=== PATIENT | female | born 1935 | race Caucasian/White ===

== ENCOUNTER 2016-06-18 11:07 | Inpatient (IN) | payer OTHER, MEDICARE ==
[~2016-06-18] VITALS: Ht 160 cm; Wt 70.0 kg
[2016-06-18] VITALS (11 sets, daily range): BP systolic 118–158; BP diastolic 48–98; PULSE 66–80; RESP 17–26; Ht 160 cm; Wt 70.0 kg
[~2016-06-18 11:07] MED LIST: AMLO5TAB4 PO; ATROPINE 1 MG/10 ML SYRINGE ONE; CARV12.598 PO; CLON0.5T4 PO; DOPamine-D5W 1.6 MG/ML 250 ML ONE; FENO145T25 PO; INSU100I13 SC; MELO-174 PO; NIT4 SL; OMEP20CA9 PO; TRAM50TA2 PO; ZOC20 PO
--- NOTE | 2016-06-18 11:23 | ERA ---
ER Documentation Chief Complaint Date/Time DATE: 06/18/16 TIME: 11:23 Chief Complaint Dizziness HPI The patient is a 81-year-old female, presenting to the ER because of acute dizziness from the [facility]. When the EMS arrived, she was hypotensive , systolic blood pressure was around 80 and bradycardic heart rate was around 30s. She however was awake, alert, able to follow commands. She denies headache, blurred vision, neck pain, chest pain. She complains of dyspnea, denies abdominal pain, vomiting, dysuria. Her doctor recently started her on spironolactone for her CHF. She does not smoke, drink Past medical history: History of CHF, diabetes mellitus, hypertension, CAD, dyslipidemia Past surgical history: None ROS All systems reviewed and are negative except as per history of present illness. Medications Home Meds Active Scripts Tramadol HCl (Tramadol HCl) 50 Mg Tab, 50 MG PO Q6H Y for HEADACHE, #30 TAB Prov:EMANUEL WADE MD 04/08/14 Reported Medications Olmesartan/Hydrochlorothiazide (Benicar Hct 40-25 mg Tablet) 1 Each Tablet, 1 EACH PO DAILY, TAB 06/18/16 Cholecalciferol (Vitamin D3) (Vitamin D3) 50,000 Unit Capsule, 67722 UNIT PO WEEKLY, CAP 06/18/16 Glimepiride* (Glimepiride*) 4 Mg Tablet, 4 MG PO DAILY, TAB 06/18/16 Metformin* (Glucophage*) 500 Mg Tab, 500 MG PO BID, #30 TAB 06/18/16 Clonidine Patch (CLONIDINE PATCH) 0.3 Mg/24 Hr Patch, 1 PATCH.WK TD Q7D, #4 PATCH.WK 06/18/16 Spironolactone* (Aldactone*) 25 Mg Tablet, 25 MG PO DAILY, #30 TAB 06/18/16 Docusate Sodium* (Docusate Sodium*) 100 Mg Capsule, 100 MG PO BID, #60 CAP 06/18/16 Clonidine Hcl* (Clonidine Hcl*) 0.1 Mg Tab, 0.1 MG PO Q6 Y for ELEVATED BLOOD PRESSURE, TAB 06/18/16 Aspirin* (Aspirin* EC) 81 Mg Tablet.dr, 81 MG PO DAILY, TAB 06/18/16 Insulin Lispro (Humalog) 100 Unit/1 Ml Cartridge, 0-18 UNIT SQ QID 06/18/16 Nitroglycerin* (Nitroglycerin* SL) 0.4 Mg Tab.subl, 0.4 MG SL Q5MIN Y for CHEST PAIN, BOTTLE 06/18/16 Insulin Glargine* (Lantus*) 100 Unit/Ml Soln, 20 UNIT SC DAILY, #1 VIAL 06/18/16 Furosemide* (Furosemide*) 40 Mg Tablet, 40 MG PO DAILY, TAB 06/18/16 Solifenacin* (Vesicare*) 10 Mg Tablet, 10 MG PO DAILY, TAB 06/18/16 Alendronate Sodium* (Fosamax*) 70 Mg Tablet, 70 MG PO Q7D, #4 TAB 06/18/16 Pantoprazole* (Pantoprazole*) 40 Mg Tablet.dr, 40 MG PO AC BREAKFAST, TAB 06/18/16 Carvedilol* (Carvedilol*) 25 Mg Tablet, 25 MG PO BID, #60 TAB 06/18/16 Citalopram Hydrobromide* (Citalopram Hydrobromide*) 20 Mg Tablet, 20 MG PO DAILY , #30 TAB 06/18/16 Simvastatin (Simvastatin) 20 Mg Tablet, 20 MG PO DAILY, TAB 04/03/14 Discontinued Reported Medications Olmesartan/Hydrochlorothiazide (Benicar Hct 40-25 mg Tablet) 1 Each Tablet, 1 EACH PO, TAB 06/18/16 Clonazepam* (Clonazepam*) 0.5 Mg Tablet, 0.5 MG PO Q6 Y for ANXIETY, TAB 04/03/14 Omeprazole* (Prilosec*) 20 Mg Capsule.dr, 20 MG PO DAILY, CAP 04/03/14 Fenofibrate Nanocrystallized* (Tricor*) 145 Mg Tablet, 145 MG PO DAILY, TAB 04/03/14 Meloxicam* (Mobic*) 7.5 Mg Tab, 7.5 MG PO DAILY, TAB 04/03/14 Discontinued Scripts Nitroglycerin* (Nitrostat*) 25 Tab Subl, 1 TAB SL Q5M Y for CHEST PAIN, #30 TAB Prov:EMANUEL WADE MD 04/08/14 Insuln Asp Prt/Insulin Aspart* (Novolog Mix 70-30 Flexpen*) 100 Unit/1 Ml Inj, 35 UNIT SC BID, #1 BOTTLE Prov:EMANUEL WADE MD 04/08/14 Carvedilol* (Coreg*) 12.5 Mg Tab, 12.5 MG PO BID, #60 TAB Prov:EMANUEL AWDE MD 04/08/14 Amlodipine Besylate* (Norvasc*) 5 Mg Tab, 2.5 MG PO DAILY, #30 TAB Prov:EMANUEL WADE MD 04/08/14 Allergies Allergies: Coded Allergies: No Known Allergy (Unverified , 06/18/16) PMhx/Soc History of Surgery: Yes (ORTHOPEDIC, CATARACT) Anesthesia Reaction: No Hx Neurological Disorder: No Hx Respiratory Disorders: No Hx Cardiac Disorders: Yes (HTN) Hx Psychiatric Problems: Yes (DEPRESSION) Hx Miscellaneous Medical Probl: Yes (OBESITY) Hx Alcohol Use: No Hx Substance Use: No Hx Tobacco Use: No Physical Exam Vitals Vital Signs Date Time Temp Pulse Resp B/P Pulse Ox O2 Delivery O2 Flow Rate FiO2 06/18/16 13:15 88 18 123/31 100 Nasal Cannula 4.0 06/18/16 12:43 75 20 96 Nasal Cannula 4.0 06/18/16 12:15 Nasal Cannula 2 06/18/16 11:58 95.4 40 18 87/50 95 Physical Exam Const: No acute distress. Head: Atraumatic. Eyes: Normal Conjunctiva. ENT: Normal External Ears, Nose and Mouth. Neck: Full range of motion. No meningismus. Resp: Clear to auscultation bilaterally. Cardio: Irregularly, bradycardic Abd: Soft, non distended, normal bowel sounds, non tender. Skin: No petechiae or rashes. Back: No midline or flank tenderness. Ext: No cyanosis, or edema. Neur: Awake and alert. No focal deficit Psych: Anxious Result Diagram: 06/18/16 1110 06/18/16 1110 Results 24 hrs Laboratory Tests Test 06/18/16 11:10 06/18/16 11:22 06/18/16 12:25 Activated Partial Thromboplast Time 27.2Sec Alanine Aminotransferase (ALT/SGPT) 27IU/L Albumin 3.6g/dl Albumin/Globulin Ratio 0.97 Alkaline Phosphatase 123IU/L Anion Gap 24 Aspartate Amino Transf (AST/SGOT) 30IU/L Basophils # 0.110^3/ul Basophils % 0.5% Blood Urea Nitrogen 60mg/dl Calcium Level 10.8mg/dl Carbon Dioxide Level 19mmol/L Chloride Level 98mmol/L Creatinine 1.75mg/dl Direct Bilirubin 0.00mg/dl Eosinophils # 0.310^3/ul Eosinophils % 2.2% Globulin 3.70g/dl Glucose Level 625mg/dl Hematocrit 33.8% Hemoglobin 11.0g/dl INR International Normalized Ratio 1.13 Indirect Bilirubin 0.4mg/dl Lactic Acid Level 6.4mmol/L Lymphocytes # 4.710^3/ul Lymphocytes % 34.0% Magnesium Level 1.8mg/dl Mean Corpuscular Hemoglobin 30.0pg Mean Corpuscular Hemoglobin Concent 32.5g/dl Mean Corpuscular Volume 92.1fl Mean Platelet Volume 11.3fl Monocytes # 0.610^3/ul Monocytes % 4.4% Neutrophils # 8.110^3/ul Neutrophils % 58.0% Nucleated Red Blood Cells # 0.010^3/ul Nucleated Red Blood Cells % 0.0/100WBC Platelet Count 39346^3/UL Potassium Level 7.6mmol/L Prothrombin Time 14.5Sec Prothrombin Time Ratio 1.1 Red Blood Count 3.6710^6/ul Red Cell Distribution Width 13.2% Sodium Level 133mmol/L Thyroid Stimulating Hormone (TSH) 7.550MIU/L Total Bilirubin 0.4mg/dl Total Protein 7.3g/dl Troponin I < 0.012ng/ml White Blood Count 14.010^3/ul Bedside Glucose > 595mg/dL Arterial Blood HCO3 21.2mmol/L Arterial Blood Base Excess -5.3mmol/L Arterial Blood Oxygen Saturation 92.3mmHG Jairon Test ACCEPTAB Arterial Blood Gas Puncture Site Left Radial Arterial Blood Carboxyhemoglobin 0% Arterial Blood Date Drawn 06/18/2016 12:22:52 PM Arterial Blood Methemoglobin 0.2% Arterial Blood pCO2 (Temp correct) 44.8mmhg Arterial Blood pH (Temp corrected) 7.292 Arterial Blood pO2 (Temp corrected) 73.4mmHG Blood Gas A-a O2 Differential 66.1mmHg Blood Gas Critical Value Read Back Grabiel MCDONALD RN Blood Gas Modality NASAL CANNULA Blood Gas Notified Time 06/18/2016 12:31:30 PM Blood Gas Notified Whom TM Blood Gas Specimen Source Blood arterial Blood Gas Temperature 37.0C FiO2 27.0% Oxyhemoglobin Percent 92.1% Total Hemoglobin 12.2g/dl Current Medications Medications (Trade) Dose Ordered Sig/Jacques Route PRN Reason Start Time Stop Time Status Last Admin Dose Admin Ondansetron HCl 4 mg 4 mg STK-MED ONCE .ROUTE 06/18/16 11:52 06/18/16 11:53 DC Norepinephrine 250 ml @ ud STK-MED ONCE .ROUTE 06/18/16 11:53 06/18/16 11:54 DC Dopamine HCl/ Dextrose 250 ml @ 5.25 mls/hr TITRATE IV 06/18/16 12:30 Norepinephrine (Levophed) 250 ml @ 1.875 mls/ hr TITRATE IV 06/18/16 12:30 Insulin Human Regular (Humulin R) 10 unit ONCE ONCE IV 06/18/16 13:00 06/18/16 13:01 DC 06/18/16 12:48 Albuterol 15 mg 15 mg ONCE STAT INH 06/18/16 12:33 06/18/16 12:35 DC 06/18/16 12:42 Piperacillin Sod/ Tazobactam Sod 50 ml @ 100 mls/hr ONCE ONCE IVPB 06/18/16 13:00 06/18/16 13:29 Vancomycin HCl (Vancocin) 250 ml @ 125 mls/hr ONCE IVPB 06/18/16 13:00 06/18/16 14:59 06/18/16 12:50 Sodium Bicarbonate (Na Bicarb 8.4% Syg) 50 ml ONCE STAT IV 06/18/16 12:35 06/18/16 12:38 DC 06/18/16 12:49 Lidocaine (Xylocaine 1% (Mdv) 20 ml) 20 ml ONCE ONCE SC 06/18/16 13:00 06/18/16 13:01 DC Procedures/MDM EKG: Read by emergency physician Rate/Rhythm: Slow atrial fibrillation 26 beats/min QRS, ST, T-waves: No ST elevation, no T inversion Impression: Abnormal EKG [place] [id number] Radiology Main Line: [phone] DIAGNOSTIC IMAGING REPORT Patient: GAURI FRAGA : 1935 Age: 81 Sex: F [id number] DOS: 06/18/16 1123 Ordering MD: FIDELIA DAILEY MD Location: E/R Room/Bed: PROCEDURE: Chest Radiograph. CLINICAL INDICATION: Sepsis. Chest pain. TECHNIQUE: Single frontal chest radiograph. COMPARISON: Chest radiograph 04/03/2014 FINDINGS: Study is limited by overlying pacer pad. The patient is mildly rotated. Heart size is within normal limits. Atherosclerotic calcifications are present. There is thickening of the right paratracheal stripe, stable compared to 2013 and likely related to tortuous vasculature. There is diffuse interstitial prominence likely related to chronic lung changes. There is mild basilar atelectasis or scarring. No confluent or lobar infiltrate is definitively seen. There is no pleural effusion identified. The bones are demineralized but grossly intact IMPRESSION: 1. Basilar atelectasis and/or scarring. 2. Diffuse interstitial prominence is nonspecific but likely relates to chronic lung changes. Pulmonary edema or atypical infections could also have this appearance. 3. Atherosclerotic vascular disease. RPTAT: KK .Moy Prince MD MD Date Time Electronically viewed and signed by .Moy Prince MD, MD on 2016 12:30 .B/ CC: FIDELIA DAILEY MD MEDICAL MAKING DECISION: The patient is a 81-year-old female, presenting with acute bradycardia in 20s, and acute dizziness most likely due to acute bradycardia, acute hyperkalemia, acute septic shock, acute new onset hypothyroidism, acute diabetic hyperglycemia, acute on chronic kidney disease, anemia. She was treated empirically with 1 L normal saline, ampule calcium gluconate iv, atropine 0.5 mg 6 approximately 3 minutes apart with minimal response. She was paced at 60 bpm and started on dopamine drip. Her vital signs improved. At this time the potassium came back 7.6, she was therefore treated with 10 units of regular insulin IV and albuterol neb 15 mg over 15 minutes and 1 amp of sodium bicarb. She was treated for probable acute septic shock with vancomycin IV, Zosyn IV. ABG on 27%, pH 7.29, PCO2 44, PO2 73 Consultation: When patient did not responded to atropine iv and calcium gluconate iv, I paged the on-call leadership development instructor Dr Singh at 11: 30 pm for emergent venous pacemaker and spoke with her at 12pm, who asked me to contact other cardiologists. I have paged Dr Juárez and Dr Valencia at 12:02 pm. I spoke with Dr. Juárez at 1 PM; however, at this time the patient vital signs has been stable and hyperkalemia has been corrected. He accepted the consult Admit MDM: Patient's infectious symptoms have not stabilized and the patient is at risk of rapid decompensation. The patient will be admitted for careful hydration, antibiotic therapy, and infectious source control. Severe Sepsis criteria: Infectious source: Unknown End organ damage indicated by: Lactate > 2.0 mmol/L Hypotension (SBP < 90 or >40 mmHG drop or MAP < 65) Acute Resp Failure (sat < 92% w/o oxygen) Sepsis Management: Time of recognition of severe sepsis/septic shock:11:15 pm Within 3 hours of recognition: Blood cultures x 2 before broad-spectrum antibiotics: Yes 30 ml/kg NS bolus not completed because of possible CHF and history of kidney disease, she did receive 1 L normal saline Initial lactate 6.4 Repeat lactate pending Critical Care: Critical care time 75 minutes Emergent fluid management while maintaining close respiratory support. Provision of immediate and broad-spectrum antibiotic therapy. Simultaneous assessment for possible sources in order to direct targeted therapy. Consideration for invasive and chemical support to prevent cardiopulmonary collapse. Septic Shock Assessment: Any lactic acid > 4.0 yes Persistent hypotension (SBP < 90 or 40 mmHg drop, MAP < 65) despite 30 mL/kg IV fluid bolusyes Volume Re-assessment for Septic Shock (post 30 ml/kg bolus): Temp95.4, BP123/31, HR88 RR18, Pox100 % on 27% Heart regular rate & rhythm Lungs no crackles Skin Warm & dry & pale Cap Refill less than 2 seconds Peripheral pulses radially present Persistent Hypotension Treatment: Comfort care no Central line PICC Vasopressor started Dopamine due to bradycardia and hypotensive I considered further perfusion assessment with CVP measurement, SCVO2, bedside ultrasound volume assessment, passive leg raise, trial of further fluid bolus. And proceeded withdopamine drip Accepting Care Team Current data and ongoing care discussed. Time: 1:05 PM Admitting Physician: Christiano Flooring Machine Operator(s): Franck Solis Diagnosis: Primary Impression: Bradycardia Additional Impressions: Hyperkalemia Septic shock Hypothyroidism Hyperglycemia due to type 2 diabetes mellitus Acute kidney injury superimposed on chronic kidney disease Anemia Condition: Critical Comments I discussed the findings with the patient. I discussed the patient with the on- call hospitalist Dr. Alvarado who was made aware of the lab, the treatment, the patient condition. The patient is admitted to ICU at 1:05 pm FIDELIA DAILEY MD Jun 18, 2016 11:23
[2016-06-18] MEDS ORDERED: CITA20TA6 PO (11:31)
[2016-06-18] MEDS ORDERED: CARV25TA79 PO (11:32)
[2016-06-18] MEDS ORDERED: SOLI10TA5 PO (11:33)
[2016-06-18] MEDS ORDERED: PANT40TA4 PO (11:33)
[2016-06-18] MEDS ORDERED: ALEN70TA30 PO (11:33)
[2016-06-18] MEDS ORDERED: FURO40TA4 PO (11:34)
[2016-06-18] MEDS ORDERED: LANT3I SC (11:35)
[2016-06-18] MEDS ORDERED: INSU100C SQ (11:36)
[2016-06-18] MEDS ORDERED: NITR0.4T6 SL (11:36)
[2016-06-18] MEDS ORDERED: ASPI-664 PO (11:36)
[2016-06-18] MEDS ORDERED: DOCU-159 PO (11:37)
[2016-06-18] MEDS ORDERED: CLON-379 PO (11:37)
[2016-06-18] MEDS ORDERED: SPIR25TA PO (11:38)
[2016-06-18] MEDS ORDERED: CLON1PAT3 TD (11:38)
[2016-06-18] MEDS ORDERED: GLIM4TAB PO (11:39)
[2016-06-18] MEDS ORDERED: METF500T4 PO (11:39)
[2016-06-18] MEDS ORDERED: CHOL500051 PO (11:41)
[2016-06-18] MEDS ORDERED: OLME1TAB5 PO ×2 (11:42)
[2016-06-18 11:51] LABS: ADD SCAN DIFF NO
[2016-06-18] MEDS ORDERED: ONDANSETRON 4 MG INJ ONE (11:52)
[2016-06-18] MEDS ORDERED: NORepinephrine 8MG/250 ML (PMX 250 ML ONE (11:53)
[2016-06-18 12:06] LABS: BASOPHIL # 0.1 10^3/ul (0.0-0.1); BASOPHILS % 0.5 % (0.0-2.0); EOSINOPHILS # 0.3 10^3/ul (0.0-0.5); EOSINOPHILS % 2.2 % (0.0-7.0); HEMATOCRIT 33.8 % (37.0-47.0); LYMPHOCYTES # 4.7 10^3/ul (0.8-2.9); MEAN CORPUSCULAR HGB CONC 32.5 g/dl (32.0-37.0); MEAN CORPUSCULAR VOLUME 92.1 fl (82.0-101.0); MEAN PLATELET VOLUME 11.3 fl (7.4-10.4); MONOCYTE # 0.6 10^3/ul (0.3-0.9); MONOCYTES % 4.4 % (0.0-11.0); NEUTROPHIL # 8.1 10^3/ul (1.6-7.5); PLATELET COUNT 382 10^3/UL (140-415); RED BLOOD COUNT 3.67 10^6/ul (4.20-5.40); RED CELL DISTRIBUTION WIDTH 13.2 % (11.5-14.5)
[2016-06-18 12:23] LABS: PT RATIO 1.1
[2016-06-18 12:24] LABS: ALANINE AMINOTRANSFERASE 27 IU/L (13-69); ALBUMIN 3.6 g/dl (3.3-4.9); ALBUMIN/GLOBULIN RATIO 0.97; ALKALINE PHOSPHATASE 123 IU/L (42-121); ANION GAP 24 (8-16); ASPARTATE AMINO TRANSFERASE 30 IU/L (15-46); BILIRUBIN,INDIRECT 0.4 mg/dl (0-1.1); BILIRUBIN,TOTAL 0.4 mg/dl (0.2-1.3); BLOOD UREA NITROGEN 60 mg/dl (7-20); CALCIUM 10.8 mg/dl (8.4-10.2); CARBON DIOXIDE 19 mmol/L (21-31); CHLORIDE 98 mmol/L (97-110); CREATININE 1.75 mg/dl (0.44-1.00); MAGNESIUM 1.8 mg/dl (1.7-2.5); SODIUM 133 mmol/L (135-144); TOTAL PROTEIN 7.3 g/dl (6.1-8.1)
[2016-06-18 12:25] LABS: GLUCOSE 625 mg/dl (70-220); POTASSIUM 7.6 mmol/L (3.5-5.1); TROPONIN-I < 0.012 ng/ml (0.00-0.12)
[2016-06-18] MEDS ORDERED: DOPamine-D5W 1.6 MG/ML 250 ML IV SCH (12:30)
[2016-06-18] MEDS ORDERED: NORepinephrine 8MG/250 ML (PMX 250 ML IV SCH ×2 (12:30→14:00)
--- NOTE | 2016-06-18 12:31 | RADRPT ---
PROCEDURE: Chest Radiograph. CLINICAL INDICATION: Sepsis. Chest pain. TECHNIQUE: Single frontal chest radiograph. COMPARISON: Chest radiograph 04/03/2014 FINDINGS: Study is limited by overlying pacer pad. The patient is mildly rotated. Heart size is within carrillo l limits. Atherosclerotic calcifications are present. There is thickening of the right paratrachea l stripe, stable compared to 2014 and likely related to tortuous vasculature. There is diffuse inter stitial prominence likely related to chronic lung changes. There is mild basilar atelectasis or sca rring. No confluent or lobar infiltrate is definitively seen. There is no pleural effusion ident ified. The bones are demineralized but grossly intact IMPRESSION: 1. Basilar atelectasis and/or scarring. 2. Diffuse interstitial prominence is nonspecific but likely relates to chronic lung changes. Pulm onary edema or atypical infections could also have this appearance. 3. Atherosclerotic vascular disease. RPTAT: KK .Moy Prince MD, MD Date Time Electronically viewed and signed by .Moy Prince MD, on 06/18/2016 12:30 .B/
[2016-06-18] MEDS ORDERED: ALBUTEROL 0.5% (NEB) 2.5 MG/0.5 ML AMP INH STA (12:33)
[2016-06-18 12:34] LABS: AADO2 Arterial 66.1 mmHg (7.0-24.0); Allen Test ACCEPTAB; Arterial Base Excess -5.3 mmol/L (-3.0-3); Arterial COHb 0 % (0.0-3.0); Arterial Fraction of Oxyhgb 92.1 % (93.0-99.0); Arterial HCO3 21.2 mmol/L (22.0-26.0); Arterial MetHb 0.2 % (0.0-1.5); Arterial Total Hemglobin 12.2 g/dl (12.0-18.0); MODE NASAL CANNULA
[2016-06-18] MEDS ORDERED: NA BICARBONATE 8.4% 50 ML SYG IV STA (12:35)
[2016-06-18 12:47] LABS: INR 1.13; PARTIAL THROMBOPLASTIN TIME 27.2 Sec (25.0-35.0); PROTIME 14.5 Sec (12.2-14.2)
[2016-06-18] MEDS ORDERED: VANCOMYCIN 1 GM (PMX) 250 ML IVPB SCH (13:00)
[2016-06-18] MEDS ORDERED: INSULIN REGULAR, HUMAN 100 UNIT/1 ML 3ML VIAL IV ONE (13:00)
[2016-06-18] MEDS ORDERED: PIPER-TAZO 2.25 GM (PMX) 50 ML IVPB ONE (13:00)
[2016-06-18] MEDS ORDERED: LIDOCAINE 1% (MDV) 20 ML INJ SC ONE (13:00)
[2016-06-18] MEDS ORDERED: SOD CHLORIDE 0.9% 1,000 ML IV SCH (13:56)
[2016-06-18] MEDS ORDERED: NACL 0.9% 3 ML SYG IV SCH (14:00)
[2016-06-18] MEDS ORDERED: hydrALAzine 20 MG INJ IV PRN (14:00)
[2016-06-18] MEDS ORDERED: NA PHOSPHATE/BIPHOS 133 ML ENEMA PR PRN (14:00)
[2016-06-18] MEDS ORDERED: HYDROCODONE/APAP (5/325) TAB PO PRN (14:00)
[2016-06-18] MEDS ORDERED: VANCOMYCIN IV PER PHARMACY XX SCH (14:00)
[2016-06-18] MEDS ORDERED: MAGNESIUM HYDROXIDE 30ML CUP PO PRN (14:00)
[2016-06-18] MEDS ORDERED: morphine 2 MG INJ IV PRN (14:00)
[2016-06-18] MEDS ORDERED: LORAZEPAM 2 MG INJ IV PRN (14:00)
[2016-06-18] MEDS ORDERED: ACETAMINOPHEN 325 MG TAB PO PRN (14:00)
[2016-06-18] MEDS ORDERED: NITROGLYCERIN (SL) 0.4 MG TAB SL PRN (14:00)
[2016-06-18] MEDS ORDERED: DOCUSATE SODIUM 100 MG CAP PO PRN (14:00)
[2016-06-18] MEDS ORDERED: ONDANSETRON 4 MG INJ IV PRN (14:00)
[2016-06-18] MEDS ORDERED: ALBUTEROL/IPRATROPIUM (NEB) 3 ML AMP HHN PRN (14:00)
--- NOTE | 2016-06-18 14:29 | CONS ---
Date/Time of Note Date/Time of Note DATE: 06/18/16 TIME: 14:22 Assessment/Plan Assessment/Plan Additional Assessment/Plan Severe hyperkalemia Bradycardia Hypotension SIRS Diabetes, uncontrolled History of congestive heart failure Lactic acidosis -Patient status post treatment of hyperkalemia, would repeat level, treat elevated glucose since this will also help with hyperkalemia. Continue IV fluids as respiratory status tolerates. Check echocardiogram. Hold any nephrotoxic or antihypertensive medications at the current time. Would titrate down dopamine as blood pressure and heart rate permits. Rule out infectious etiology Consultation Date/Type/Reason Admit Date/Time Type of Consultation: cv Reason for Consultation Bradycardia Hx of Present Illness This is an 81-year-old female with past medical history of congestive heart failure, hypertension, diabetes who was in her normal state of health and went to her daycare facility today. While she was there, patient with symptoms of dizziness and lightheadedness, fatigue and near syncope. EMS was called, patient was hypotensive, bradycardic with elevated sugar. Patient was brought to the emergency room and found to be with junctional bradycardia. Patient was treated prophylactically for hyperkalemia. She was put on dopamine as well. Blood pressure and heart rate has improved. She denies any chest pain, shortness of breath, fevers, chills, abdominal pain. She was recently at [facility] in [place]. She was there with "fluid in her lungs". While there, she was started on spironolactone. 12 point review of systems was performed with all pertinent positives and negatives mentioned above and all else is negative Past Medical History Medical History: congestive heart failure, high cholesterol, hypertension, renal disease Family History Significant Family History: no pertinent family hx Social History Alcohol Use: none Smoking Status: Never smoker Other Social History Lives at home Exam/Review of Systems Vital Signs Vitals Vital Signs Date Time Temp Pulse Resp B/P Pulse Ox O2 Delivery O2 Flow Rate FiO2 06/18/16 13:15 88 18 123/31 100 Nasal Cannula 4.0 06/18/16 11:58 95.4 Exam On facemask, no apparent distress Constitutional: alert, obese, oriented Head: normocephalic Neck: supple Respiratory: other (Coarse breath sounds bilaterally, no wheezing) Cardiovascular: other (S1-S2 heard), regular rate and rhythm Gastrointestinal: bowel sounds, non-tender, other (No guarding), soft Extremities: edema (Trace) Results Result Diagram: 06/18/16 1110 06/18/16 1110 Results 24 hrs Laboratory Tests Test 06/18/16 11:10 06/18/16 11:22 06/18/16 12:25 Activated Partial Thromboplast Time 27.2 Alanine Aminotransferase (ALT/SGPT) 27 Albumin 3.6 Albumin/Globulin Ratio 0.97 Alkaline Phosphatase 123 H Anion Gap 24 H Aspartate Amino Transf (AST/SGOT) 30 Basophils # 0.1 Basophils % 0.5 Blood Urea Nitrogen 60 H Calcium Level 10.8 H Carbon Dioxide Level 19 L Chloride Level 98 Creatinine 1.75 H Direct Bilirubin 0.00 Eosinophils # 0.3 Eosinophils % 2.2 Globulin 3.70 H Glucose Level 625 *H Hematocrit 33.8 L Hemoglobin 11.0 L INR International Normalized Ratio 1.13 Indirect Bilirubin 0.4 Lactic Acid Level 6.4 *H Lymphocytes # 4.7 H Lymphocytes % 34.0 Magnesium Level 1.8 Mean Corpuscular Hemoglobin 30.0 Mean Corpuscular Hemoglobin Concent 32.5 Mean Corpuscular Volume 92.1 Mean Platelet Volume 11.3 #H Monocytes # 0.6 Monocytes % 4.4 Neutrophils # 8.1 H Neutrophils % 58.0 Nucleated Red Blood Cells # 0.0 Nucleated Red Blood Cells % 0.0 Platelet Count 382 Potassium Level 7.6 *H Prothrombin Time 14.5 H Prothrombin Time Ratio 1.1 Red Blood Count 3.67 L Red Cell Distribution Width 13.2 Sodium Level 133 L Thyroid Stimulating Hormone (TSH) 7.550 H Total Bilirubin 0.4 Total Protein 7.3 Troponin I < 0.012 White Blood Count 14.0 #H Bedside Glucose > 595 *H Arterial Blood HCO3 21.2 L Arterial Blood Base Excess -5.3 L Arterial Blood Oxygen Saturation 92.3 L Jairon Test ACCEPTAB Arterial Blood Gas Puncture Site Left Radial Arterial Blood Carboxyhemoglobin 0 Arterial Blood Date Drawn 06/18/2016 12:22:52 PM Arterial Blood Methemoglobin 0.2 Arterial Blood pCO2 (Temp correct) 44.8 Arterial Blood pH (Temp corrected) 7.292 *L Arterial Blood pO2 (Temp corrected) 73.4 L Blood Gas A-a O2 Differential 66.1 H Blood Gas Critical Value Read Back Grabiel MCDONALD RN Blood Gas Modality NASAL CANNULA Blood Gas Notified Time 06/18/2016 12:31:30 PM Blood Gas Notified Whom TM Blood Gas Specimen Source Blood arterial Blood Gas Temperature 37.0 FiO2 27.0 Oxyhemoglobin Percent 92.1 L Total Hemoglobin 12.2 Medications Medications Current Medications Dopamine HCl/ Dextrose 250 ml @ 5.25 mls/hr TITRATE IV ; Start 06/18/16 at 12: 30 Norepinephrine 250 ml @ 1.875 mls/ hr TITRATE IV ; Start 06/18/16 at 12:30 Vancomycin HCl (Vancocin) 250 ml @ 125 mls/hr ONCE IVPB Last administered on t 12:50; Admin Dose 125 MLS/HR; Start 06/18/16 at 13:00; Stop 06/18/16 at 14:59 Ondansetron HCl (Zofran Inj) 4 mg Q6H PRN IV NAUSEA AND/OR VOMITING; Start at 14:00 Acetaminophen (Tylenol Tab) 650 mg Q6H PRN PO PAIN LEVEL 1-3 OR FEVER; Start at 14:00 Acetaminophen/ Hydrocodone Bitart ([place] (5/325)) 1 tab Q6H PRN PO MODERATE PAIN LEVEL 4-6; Start 06/18/16 at 14:00 Morphine Sulfate (morphine) 2 mg Q4H PRN IV SEVERE PAIN LEVEL 7-10; Start 06/18 at 14:00 Docusate Sodium (Colace) 100 mg Q12H PRN PO CONSTIPATION; Start 06/18/16 at 14: 00 Magnesium Hydroxide (Milk Of Mag) 30 ml DAILY PRN PO CONSTIPATION; Start at 14:00 Sodium Biphosphate/ Sodium Phosphate (Fleet Enema) 133 ml DAILY PRN [place] CONSTIPATION; Start 06/18/16 at 14:00 Famotidine (Pepcid Iv) 20 mg Q12 IV ; Start 06/18/16 at 21:00; Status UNV Lorazepam 0.5 mg 0.5 mg Q6H PRN IV ANXIETY; Start 06/18/16 at 14:00 Sodium Chloride 1,000 ml @ 100 mls/hr Q10H IV ; Start 06/18/16 at 13:56 Levofloxacin/ Dextrose (Levaquin 750 Mg/ D5W 150 ml (Pmx)) 150 ml @ 100 mls/hr DAILY IVPB ; Start 06/19/16 at 09:00; Status UNV Hydralazine HCl (Apresoline) 10 mg Q6H PRN IV ELEVATED BLOOD PRESSURE; Start at 14:00 Nitroglycerin 1 tab 1 tab Q5M PRN SL ANGINA; Start 06/18/16 at 14:00 Sodium Chloride (NS) 1,000 ml @ 1,000 mls/hr Q1H IV ; Start 06/18/16 at 13:56; Stop 06/18/16 at 15:55 Miscellaneous Information (* Miscellaneous Pharmacy Order) HYPOGLYCEMIA PROTOCOL w... ONCE ONCE XX ; Start 06/18/16 at 14:00; Stop 06/18/16 at 14:01; Status UNV Miscellaneous Information (* Miscellaneous Pharmacy Order) Discontinue Glyburide , Glipizide,... ONCE ONCE XX ; Start 06/18/16 at 14:00; Stop 06/18/16 at 14:01 ; Status UNV Miscellaneous Information (* Miscellaneous Pharmacy Order) Discontinue all previ... ONCE ONCE XX ; Start 06/18/16 at 14:00; Stop 06/18/16 at 14:01; Status UNV Insulin Glargine (Lantus) 20 unit DAILY SC ; Start 06/19/16 at 09:00; Status UNV Miscellaneous Information 20 mg DAILY PO ; Start 06/19/16 at 09:00; Status UNV Miscellaneous Information 1 ea NOTE XX ; Start 06/18/16 at 14:30 Glucose (Glutose) 15 gm Q15M PRN PO DECREASED GLUCOSE; Start 06/18/16 at 14:30 Glucose (Glutose) 22.5 gm Q15M PRN PO DECREASED GLUCOSE; Start 06/18/16 at 14: 30 Dextrose (D50w Syringe) 25 ml Q15M PRN IV DECREASED GLUCOSE; Start 06/18/16 at 14:30 Dextrose (D50w Syringe) 50 ml Q15M PRN IV DECREASED GLUCOSE; Start 06/18/16 at 14:30 Glucagon (Glucagen) 1 mg Q15M PRN IM DECREASED GLUCOSE; Start 06/18/16 at 14:30 Glucose (Glutose) 15 gm Q15M PRN BUCCAL DECREASED GLUCOSE; Start 06/18/16 at 14 :30 Procedures Procedures ECG done in the emergency room demonstrates junctional bradycardia On telemetry, currently sinus rhythm with heart rates in the 90s Richard Juárez DO Jun 18, 2016 14:29
[2016-06-18] MEDS ORDERED: GLUCAGON 1 MG INJ IM PRN ×2 (14:30)
[2016-06-18] MEDS ORDERED: GLUCOSE GEL 15 GRAM TUBE PO PRN ×4 (14:30)
[2016-06-18] MEDS ORDERED: GLUCOSE GEL 15 GRAM TUBE BUCCAL PRN ×2 (14:30)
[2016-06-18] MEDS ORDERED: DEXTROSE 50% 50 ML SYRINGE IV PRN ×4 (14:30)
[2016-06-18] MEDS ORDERED: LEVOFLOXACIN 750MG/D5W (PMX) 150 ML IVPB SCH (16:00)
[2016-06-18] MEDS: SOD CHLORIDE 0.9% 1,000 ML IV SCH ×2 (17:00→23:56)
[2016-06-18] MEDS ORDERED: VANCOMYCIN 750 MG in SOD CHLORIDE 0.9% 150 ML IVPB SCH (17:00)
[2016-06-18] MEDS ORDERED: INSULIN ASPART [NOVOLOG] 3 ML PEN SC SCH (17:35)
--- NOTE | 2016-06-18 17:35 | CONS ---
DATE OF ADMISSION: 06/18/2016 DATE OF CONSULTATION: 06/18/2016 TYPE OF CONSULTATION: Nephrology. REASON FOR CONSULTATION: Acute kidney injury, hyperkalemia. PHYSICIAN REQUESTING CONSULT: Dr. Juárez. HISTORY OF PRESENT ILLNESS: This is an 81-year-old female with a past medical history of CHF, diabe petrona, hypertension, coronary artery disease, dyslipidemia who [facility] with dizziness from [facility]. The patient was noted to be confused and al tered at her outside facility. Upon arrival to the emergency room, patient was noted to be hypotens simeon with systolic pressures in the 80s, bradycardic in the 50s. The patient had no headache, no jack rred vision, no neck pain, no chest pain, denied any dysuria, hematuria, hematochezia. Upon arrival , the patient had laboratory data drawn, which showed a sodium 132, potassium 7.6, BUN 60, creatinin e 1.75, and glucose 625. Lactic acid of 6.4, calcium 10.8, a white count of 14,000. In the emergen cy room, the patient had a chest x-ray which showed interstitial prominence, pulmonary edema or poss ible atypical infection. The patient in the emergency room was given calcium gluconate, was given I V insulin and was given albuterol, sodium bicarbonate and IV fluids, IV antibiotics, and transferred to the intensive care unit. While in intensive care unit, the patient was also initiated on dopami ne due to bradycardia and episode of hypertension. Upon my evaluation of patient at this time, she is alert and oriented x1. The patient is a poor his tree, but unable to give any prior history in terms of her renal disease. There has been no repor ts, as stated above, of any hemoptysis, hematemesis or hematochezia. PAST MEDICAL HISTORY: History of congestive heart failure, diabetes, hypertension, coronary artery disease, dyslipidemia. PAST SURGICAL HISTORY: Unknown. ALLERGIES: NO KNOWN DRUG ALLERGIES. FAMILY HISTORY: No family history of kidney disease or heart disease. SOCIAL HISTORY: No history of alcohol or drug use. MEDICATIONS: The patient's medications have been reviewed. REVIEW OF SYSTEMS: Unable to do adequate review of systems as patient is altered. Pertinent positi ves obtained by reviewing medical records, speaking to hospital staff, stated in HPI, otherwise nega tive. PHYSICAL EXAMINATION: VITAL SIGNS: Blood pressure is 129/73, respiratory rate 20, pulse 71, temperature 98.4. HEENT: Head is normocephalic. NECK: Supple. HEART: Regular rate. LUNGS: Show diminished breath sounds at the base. ABDOMEN: Soft, nontender to palpation. No rebound or guarding. EXTREMITIES: Negative for clubbing, cyanosis. Trace edema. DERMATOLOGIC: No rashes. MUSCULOSKELETAL: No joint effusions. NEUROLOGIC: No focal deficits. LABORATORY DATA: Showed a sodium 133, potassium 7.6, BUN 60, creatinine 1.65, glucose 625. Lactic acid 6.4. White count 14.0, hemoglobin 11.0, hematocrit 30.8, platelet count 382. Repeat potassium level was 5.8. Chest x-ray as stated in HPI. ASSESSMENT AND PLAN: This is an 81-year-old female who presents with: 1. Severe hyperkalemia. Etiology is multifactorial secondary to hyperglycemia, Aldactone effect, h emodynamics, acute kidney injury. Patient is status post calcium gluconate, IV insulin, sodium bica rbonate and albuterol. The patient repeat potassium level is 5.8. The patient's bradycardia subseq uently resolved. The patient's urinary output has been over 400 mL in the last 8 hours. At this po int, given the patient's improved potassium levels and adequate urine output, and resolution of matt ycardia, there is no immediate need for renal replacement therapy. Would continue current medical m anagement. Continue IV hydration as tolerated. Will hold Aldactone. Will monitor serial potassium levels. If potassium levels do not further decline and/or should increase, would consider starting the patient on dialysis. Additionally, would continue with improved glucose control. Once the pat ient is near euglycemic status, the patient's potassium levels will also improve 2. Nonoliguric acute kidney injury on top of chronic kidney disease with unknown baseline creatinin e. The patient's last creatinine from 2013 was around 1.5 mg/dL, near her previous baseline. Under lying etiology is possibly hemodynamics and medication related due to diuretics and Aldactone effect . Plan at this point would be to check a renal ultrasound to rule out obstruction, although suspici on is low. Will check UA with microanalysis, check urine electrolytes and quantify any proteinuria. Agree with holding diuretic therapy. Agree with giving gentle IV hydration. Will monitor renal f unction closely. 3. Hyponatremia, etiology secondary to acute kidney injury in conjunction with hyperglycemia. The plan is to intensify insulin therapy to obtain euglycemia. Potassium levels will subsequently impro ve, will monitor closely. 4. Mixed acid base disorder. The patient has a metabolic and respiratory acidosis. The patient aldana s a pH of 7.29 with a pCO2 of 44. The patient's underlying pCO2 levels are inappropriately elevated . Etiology of acidosis is due to acute kidney injury and lactic acid. Patient is status post bicar bonate therapy. We will continue to monitor bicarbonate levels. No need for bicarbonate drip at th is time. 5. Mineral bone disorder. Monitor calcium, phosphorus levels. No need for phosphate binders. 6. Bradycardia due to hyperkalemia, improved. The patient is status post dopamine. Continue to mo nitor. 7. Systemic inflammatory response syndrome, possible sepsis. The patient is currently on IV antibi otics. We will follow up cultures. 8. History of congestive heart failure. The patient is near euvolemic status, monitor closely on I V fluids. 9. Uncontrolled diabetes. Would consider insulin drip if glucose levels remain greater than 300. 10. Encephalopathy, etiology toxic metabolic. Continue to monitor. 11. Hypertension, possibly related to hemodynamics, blood pressures and/or infection. The patient 's blood pressure is improved. Will continue to monitor. Thank you, Dr. Juárez, for this interesting consultation. It will be a pleasure to follow patient w sylwia newell throughout the hospital course. Dictated By: CHA VALDOVINOS DO NR/NTS Conf#: [id number] DID#: [id number] CC: FIDELIA JUÁREZ DO;*EndCC*
--- NOTE | 2016-06-18 17:40 | RADRPT ---
PROCEDURE: Renal US. CLINICAL INDICATION: Acute kidney injury. TECHNIQUE: Multiple sonographic images of the kidneys and urinary bladder were obtained. The imag es were reviewed on a PACS workstation. COMPARISON: 04/05/2014. FINDINGS: The right kidney measures 10.5 x 4.9 x 5.9 cm. The left kidney measures 10.4 x 4.3 x 4.5 cm. There is no renal mass. There is no hydronephrosis. There is no renal calculus. Renal parenchymal thickness and echogenicity is normal bilaterally. The perirenal regions are normal with no fluid collection or mass. There is a Amaya catheter in the urinary bladder. IMPRESSION: 1. Amaya catheter in the bladder. 2. No hydronephrosis. 3. Otherwise normal renal ultrasound. RPTAT: QQ .Khadar Bell MD, MD Date Time Electronically viewed and signed by .Khadar Bell MD, on 06/18/2016 17:40 .R/
[2016-06-18 19:04] LABS: POTASSIUM 5.2 mmol/L (3.5-5.1)
[2016-06-18 19:06] LABS: CREATININE 1.42 mg/dl (0.44-1.00)
[2016-06-18 19:07] LABS: CALCIUM 10.4 mg/dl (8.4-10.2)
--- NOTE | 2016-06-18 19:25 | RADRPT ---
PROCEDURE: XR Chest. CLINICAL INDICATION: Shortness of breath. PICC line placement TECHNIQUE: A single portable view of the chest was obtained. COMPARISON: 06/18/2016 from 12:13 p.m. FINDINGS: A left PICC line is seen with the tip in the SVC. The aorta is tortuous and atherosclerotic. The c ardiomediastinal silhouette is otherwise enlarged and is stable. Diffuse pulmonary vascular congest ion is seen with likely underlying pulmonary edema and is increase. The soft tissues and osseous str uctures demonstrate benign age related senescent changes. IMPRESSION: 1. Interval placement of a left PICC line with the tip in the SVC. 2. Radiographic findings consistent with congestive heart failure again with increased pulmonary va scular congestion and underlying pulmonary edema. RPTAT: HPNM Physician Larisa Date Time Electronically viewed and signed by Jose Daniel Rushing Physician on 06/18/2016 19:25 /
--- NOTE | 2016-06-18 19:30 | RADRPT ---
PROCEDURE: XR Chest. CLINICAL INDICATION: PICC line insertion. TECHNIQUE: Single AP portable chest COMPARISON: 06/18/2016 chest x-ray FINDINGS: Cardiac silhouette is enlarged. Marked vascular congestion and vascular prominence. Small right pl eural effusion. Superimposed infectious process cannot be excluded particularly involving the right infrahilar region. Left PICC line catheter tip overlying the cavoatrial junction. No pneumothorax . . The osseous structures and soft tissues are unremarkable. IMPRESSION: 1. Left PICC line catheter tip overlying the cavoatrial junction.. 2. Cardiomegaly and marked vascular congestion. Superimposed infectious process cannot be excluded particularly involving the right infrahilar region. RPTAT:AAJJ Grabiel Turner Physician Date Time Electronically viewed and signed by Grabiel Turner Physician on 06/18/2016 19:30 AYDE/
[2016-06-18] MEDS: FAMOTIDINE 20 MG INJ IV SCH (20:25)
[2016-06-18] MEDS: ATORVASTATIN 10 MG TAB PO SCH (20:25)
[2016-06-18 20:43] LABS: CK-MB 1.51 ng/ml (0.0-2.4)
[2016-06-18] MEDS: INSULIN ASPART [NOVOLOG] 3 ML PEN SC SCH (20:44)
[2016-06-18 20:46] LABS: TROPONIN-I 0.028 ng/ml (0.00-0.12)
[2016-06-19] VITALS (24 sets, daily range): BP systolic 87–157; BP diastolic 44–79; PULSE 64–80; RESP 11–25
[2016-06-19] MEDS: INSULIN ASPART [NOVOLOG] 3 ML PEN SC SCH ×6 (00:40→20:59)
[2016-06-19 05:22] LABS: ADD SCAN DIFF NO
[2016-06-19 05:28] LABS: BASOPHILS % 0.4 % (0.0-2.0); EOSINOPHILS # 0.1 10^3/ul (0.0-0.5); EOSINOPHILS % 0.5 % (0.0-7.0); HEMATOCRIT 27.5 % (37.0-47.0); HEMOGLOBIN 9.2 g/dl (12.0-16.0); LYMPHOCYTES # 2.1 10^3/ul (0.8-2.9); LYMPHOCYTES % 18.4 % (15.0-51.0); MEAN CORPUSCULAR HEMOGLOBIN 29.5 pg (29.0-33.0); MEAN CORPUSCULAR HGB CONC 33.5 g/dl (32.0-37.0); MEAN CORPUSCULAR VOLUME 88.1 fl (82.0-101.0); MEAN PLATELET VOLUME 11.1 fl (7.4-10.4); MONOCYTE # 0.9 10^3/ul (0.3-0.9); MONOCYTES % 8.1 % (0.0-11.0); NEUTROPHIL # 8.1 10^3/ul (1.6-7.5); NEUTROPHILS % 72.2 % (39.0-77.0); PLATELET COUNT 259 10^3/UL (140-415); RED BLOOD COUNT 3.12 10^6/ul (4.20-5.40); RED CELL DISTRIBUTION WIDTH 13.4 % (11.5-14.5); WHITE BLOOD COUNT 11.3 10^3/ul (4.8-10.8)
[2016-06-19 05:51] LABS: CREATININE 1.23 mg/dl (0.44-1.00)
[2016-06-19 05:52] LABS: CALCIUM 9.8 mg/dl (8.4-10.2); MAGNESIUM 1.2 mg/dl (1.7-2.5); PHOSPHORUS 4.6 mg/dl (2.5-4.9)
[2016-06-19 06:20] LABS: THYROID STIMULATING HORMONE 1.37 MIU/L (0.465-4.680)
--- NOTE | 2016-06-19 07:21 | HP ---
DATE OF ADMISSION: 06/18/2016 CHIEF COMPLAINT: Dizziness and high potassium. HISTORY OF PRESENT ILLNESS: An 81-year-old female with past medical history of type 2 diabetes, ess ential hypertension, coronary artery disease, high cholesterol, depression and CHF, who was brought in by ambulance today. Most of the information was obtained from the ER documentation as the patien t is presently on a breathing treatment and getting echocardiogram and not able to provide a full HP I at this time. Apparently, per documentation, the patient was at her adult daycare, tried to stand up earlier today, she became dizzy and diaphoretic. When EMS was called to the scene, her blood pr essure was found to be in the 80s and her heart rate was in the 30s. Her glucose was actually over 500. So, the patient was brought to the ER. External pacemaker was started and the patient was als o found with high potassium levels of 7.6. She was given calcium gluconate, 10 units of IV insulin, sodium bicarbonate 1 amp, as well as albuterol nebulizer. For her bradycardia, she also received a tropine x6. Eventually, the external pacemaker was able to be removed and her heart rate stabilized to the low 60s. She was also put on a dopamine drip briefly as well because of the hypotension aft er getting the 1 liter of normal saline IV fluid bolus. Cardiology team was also contacted who agre ed to see the patient as well. Apparently, per records, the patient also had recently been started on Aldactone as an outpatient for CHF. Again, her potassium was 7.6 and the above medicines were gi leni as mentioned above. REVIEW OF SYSTEMS: A full review of systems could not be obtained because the patient was presently on nebulizer mask and getting echocardiogram. PAST MEDICAL HISTORY: As stated above. ALLERGIES: NO KNOWN DRUG ALLERGIES. HOME MEDICATIONS: 1. Coreg 25 mg b.i.d. 2. Clonidine 0.1 mg p.o. q.6h. p.r.n. 3. Clonidine patch transdermal q. weekly. 4. Nitroglycerin 0.4 mg sublingual every 5 minutes p.r.n. 5. Benicar 40/25 daily. 6. Simvastatin 20 mg daily. 7. Spironolactone 25 mg daily. 8. Aspirin 81 mg daily. 9. Citalopram 20 mg daily. 10. Tramadol 50 mg q.6h. p.r.n. 11. Lasix 80 mg daily. 12. Colace 100 mg b.i.d. 13. Protonix 40 mg daily. 14. Glimepiride ____ mg daily. 15. Lantus 20 units subcutaneous daily. 16. Humalog ____ units q.i.d. 17. Metformin 500 mg b.i.d. 18. VESIcare 10 mg daily. 19. Vitamin D3 50,000 units weekly. 20. Fosamax 70 mg q. weekly. PAST SURGICAL HISTORY: She has had cataract surgery in the past and some kind of orthopedic surgery in the past, unable to further clarify. FAMILY HISTORY: Unknown. SOCIAL HISTORY: Negative for smoking, drinking, or IV drug abuse. PHYSICAL EXAMINATION: VITAL SIGNS: Today, temperature max 95.4, pulse 30 to 88, respirations 18 to 20, blood pressure 80/ 50 to 123/31, saturating at 100% on 4 liters nasal cannula. GENERAL: The patient is alert, answering questions, but presently getting nebulizer mask. No acute distress. HEENT: Pupils equal, round, react to light. Extraocular muscles intact. NECK: Supple, no thyromegaly. LUNGS: Clear to auscultation bilaterally. CARDIOVASCULAR: S1, S2 heard. No rubs or gallops. ABDOMEN: Soft, nontender, nondistended. Normal bowel sounds. No rebound or guarding. MUSCULOSKELETAL: Trace pitting edema bilateral lower extremities to the mid calves. NEUROLOGIC: No focal deficits. LABORATORY DATA: WBC 14.0, hemoglobin 11.0, hematocrit 33.8, platelets of 382. Sodium 133, potass ium 7.6, chloride 98, CO2 of 19, BUN of 60, creatinine 1.75, glucose of 625. Lactic acid 6.4. Calcium is 10.8. Again, glucose was 595. UA is still pending. ABG showed a pH of 7.29, pCO2 of 44, PaO2 of 73, bicarbonate of 21.2. IMAGING: She had a chest x-ray which showed bibasilar atelectasis with diffuse interstitial promine nce nonspecific, but likely related to chronic lung changes, cannot rule out pulmonary edema or atyp ical infections. ASSESSMENT AND PLAN: An 81-year-old female coming in with dizziness and sweating with findings of h yperglycemia, sugars over 500. Also, hypotension, bradycardia, hyperkalemia. 1. Hypotension. Again, unclear source. The patient is on multiple blood pressure medicines at [facility]. Her white count is elevated. She does have a history of congestive heart failure. Cannot rule out a septic versus cardiogenic shock cause. She also has an elevated lactic acid. We will admit h er and put her on aggressive IV fluid hydration as well, pressor support as needed. We will get a c ardiology consult as well. Consider infectious disease consult. We will followup on her culture re sults. Check TSH, A1c, and lipid panel as well. 2. Hyperkalemia. Again, she did receive calcium gluconate, IV insulin, sodium bicarbonate and albu terol. Check BMP today to monitor potassium levels as well. Monitor cardiac system very carefully as well. Continue IV fluids as well. Monitor urine output. 3. Bradycardia. Again, unclear source. She was recently started on Aldactone at home. She is on Coreg as well. Because she has a history of CHF, we will get a cardiology consult. Hold her cardia c medicines for now. Her blood pressure has stabilized after getting multiple doses of atropine and also started on pressor support as well in the ER. She is alert. 4. Hyperglycemia. Again, she has per records, a history of type 2 diabetes. Her anion gap is slig htly elevated. We do not have a UA, but her bicarbonate is only minimally low. Low suspicion for _ ___ versus DKA. It could just be uncontrolled diabetes. Again, aggressive IV fluids and IV insulin as well. 5. History of congestive heart failure. We will get echocardiogram and get a cardiology consult as well. We are holding her blood pressure medicines given the above symptoms and hypotension and bra dycardia. 6. History of type 2 diabetes. Again, check A1c, put her on sliding scale insulin. 7. History of coronary artery disease. Again, consider restarting her home aspirin. 8. High cholesterol. Check a lipid panel as well. 9. Gastrointestinal prophylaxis. We will put her on an H2 eugenio. 10. Deep venous thrombosis prophylaxis. Put her on sequential compression devices. We will get PT , OT consults as well. Dictated By: OG WOOD Conf#: [id number] [facility]#: [id number]
[2016-06-19] MEDS ORDERED: MAGNESIUM SULFATE 4 GM/100 ML 100 ML IVPB ONE (07:30)
[2016-06-19] MEDS ORDERED: MAGNESIUM SULFATE 2 GM/50 ML 50 ML IVPB ONE (07:30)
--- NOTE | 2016-06-19 08:33 | PN ---
DATE: 06/19/2016 SUBJECTIVE: The patient is stable, no acute events overnight. No fevers, chills, nausea, vomiting. No shortness of breath. OBJECTIVE: VITAL SIGNS: Blood pressure is currently 157/60, respiration 18, pulse 98.7. INTAKE AND OUTPUT: The patient had 2 L in, 1.6 liters out. HEENT: Head is normocephalic. NECK: Supple. HEART: Regular rate. LUNGS: Show diminished breath sounds at base. ABDOMEN: Soft, nontender to palpation. No rebound or guarding. EXTREMITIES: Negative for clubbing, cyanosis. Trace edema. DERMATOLOGIC: No rashes. MUSCULOSKELETAL: No joint effusion. NEUROLOGIC: No focal deficits. LABORATORY DATA: Show sodium 140, potassium 5.0, chloride 104, BUN , creatinine 1.23, magnesiu m 1.2. White count 11.3, hemoglobin 9.2, hematocrit 27.5, platelet count 259,000. IMAGING STUDIES: Patient's renal ultrasound shows Amaya catheter in bladder, no hydronephrosis, oth erwise normal renal ultrasound. ASSESSMENT AND PLAN: 1. Severe hyperkalemia. Etiology is primarily secondary to severe hypercalcemia in conjunction wit h Aldactone hemodynamics. The patient's potassium levels have normalized after improved glyce ann control and receiving IV fluids. At this point, would recommend to deescalate IV in the history of congestive heart failure. If patient is able to tolerate p.o. we will discontinue IV fluids. W ould otherwise have the patient on a low potassium diet. Would avoid ROB inhibitor and Aldactone at this time. Otherwise, continue to monitor closely. 2. Nonoliguric acute kidney injury on top of chronic kidney disease, with a baseline creatinine of 1.5 mg/dL. Etiology of acute kidney injury was secondary to hemodynamics. Renal function has impro nathan with IV hydration. At this point we will discontinue IV fluids if the patient is able to tolera te p.o. Otherwise, we will continue supportive care, renally dose medications, avoid nephrotoxins. 3. Hyponatremia secondary to hyperglycemia, acute kidney injury improved. 4. Mixed acid base disorder. The patient had underlying metabolic acidosis and respiratory acidosi s. Currently the patient's bicarbonate levels are within normal limits. No need for bicarbonate th erapy. 5. Mineral bone disorder. Continue to monitor calcium and phosphorus levels. 6. Sinus bradycardia, resolved. 7. Systemic inflammatory response syndrome, possible sepsis. The patient is on IV antibiotics. We will continue to monitor. 8. History of congestive heart failure. The patient appears euvolemic. We will stop IV fluids onc e able to tolerate p.o. 9. Diabetes, improved. Continue current insulin regimen. 10. Encephalopathy, improving. 11. Hypertension. We will continue to monitor. Anticipate patient will be resumed on oral antihyp ertensive medications. Dictated By: CHA HE/REFUGIO Conf#: [id number] DID#: [id number]
[2016-06-19] MEDS: INSULIN GLARGINE [LANtus] 3 ML PEN SC SCH (08:40)
[2016-06-19] MEDS: SOD CHLORIDE 0.9% 1,000 ML IV SCH ×2 (08:43→23:56)
--- NOTE | 2016-06-19 11:15 | RADRPT ---
Echocardiogram Report Patient Name: GAURI FRAGA Gender: Female Date: 1935 Study Date: 18-Jun-2016 [employer] Operator: Kaushik Beaver RDCS Location: 4 Ref. Physician: RICHARD RICE Quality: Good Procedures: Transthoracic echocardiogram with complete 2D, M-Mode, and doppler examination. Indications: Congestive Heart Failure. 2D/M Mode Doppler Measurement Value Normal Ranges Measurement Value Normal Ranges LVIDd 2D 4.6 3.5 - 5.6 cm ORTIZ Vmax 1.9 cm2 LVIDs 2D 1.1 2.1 - 4.1 cm ORTIZ VTI 2.1 cm2 FS 2D 76.9 % AV Mean Dilip 1.6 m/sec LVPWd 2D 1.1 0.6 - 1.1 cm AV Mean PG 12.0 mmHg IVSd 2D 0.9 0.6 - 1.1 cm AV Peak Dilip 2.3 m/sec IVS/LVPW 2D 0.8 AV Peak PG 21.0 mmHg AoR Diam 2D 2.6 2.0 - 3.7 cm AV VTI 42.1 cm LA/Ao 2D 1 0 - 1 LVOT Mean Dilip 1.1 m/sec EDV 2D 96.1 cm3 LVOT Mean PG 6.0 mmHg ESV 2D 1.2 cm3 LVOT Peak Dilip 1.6 m/sec LA Dimen 2D 3.4 2.3 - 4.0 cm LVOT Peak PG 10.0 mmHg LVOT Diam 1.9 cm LVOT VTI 30.9 cm LVOT Area 2.8 cm2 MV E Peak Dilip 0.9 m/sec MV A Peak Dilip 1.1 m/sec MV E/A 0.8 MV Decel Time 239 msec MV E/A 0.8 TR Peak Dilip 3.2 m/sec TR Peak PG 40.0 mmHg RVSP 43.0 mmHg Findings Left Ventricle: Normal left ventricular systolic function. Normal left ventricular cavity size. Mild concentric left ventricular hypertrophy. Ejection fraction is visually estimated at 60 %. Tissue Doppler/Mitral Doppler indices are consistent with impaired relaxation (Stage I diastolic dysfunction). Right Ventricle: Normal right ventricular size. Normal right ventricular systolic function. Left Atrium: The left atrium is normal in size. Right Atrium: The right atrium is normal in size. Mitral Valve: Mild mitral leaflet calcification. Moderate mitral annular calcification. Trace mitral regurgitation. Aortic Valve: Aortic sclerosis without stenosis. Aortic cusps appear mildly calcified. Trace aortic valve regurgitation. Tricuspid Valve: Normal appearance and function of the tricuspid valve with trace physiologic regurgitation. Estimated peak PA systolic pressure 43 mmHg. Pulmonic Valve: Normal pulmonic valve appearance. Pericardium: Normal pericardium with no significant pericardial effusion. Aorta: Normal aortic root. IVC: Normal size and normal respiratory collapse consistent with normal right atrial pressure. Conclusions 1.Normal left ventricular systolic function. Normal left ventricular cavity size. Mild concentric left ventricular hypertrophy. Ejection fraction is visually estimated at 60 %. Tissue Doppler/Mitral Doppler indices are consistent with impaired relaxation (Stage I diastolic dysfunction). 2.Normal right ventricular size. Normal right ventricular systolic function. 3.The left atrium is normal in size. 4.The right atrium is normal in size. 5.No significant valvular stenosis or regurgitation seen. 6.Normal pericardium with no significant pericardial effusion. Electronically Signed By: Richard Rice 19-Jun-2016 11:14:46 -0800 Patient Name: GAURI FRAGA Study Date: 18-Jun-2016 [id number]
--- NOTE | 2016-06-19 13:09 | RADRPT ---
PROCEDURE: US guidance for PICC line CLINICAL INDICATION: PICC line placement TECHNIQUE: Multiple real-time images were acquired of the patient's arm utilizing a high resolutio n transducer. This was performed by the PICC line nurse for venous access. COMPARISON: None FINDINGS: Ultrasound guidance for PICC line placement. IMPRESSION: Ultrasound guidance for PICC line placement. RPTAT: AA .Hernan Puga MD, MD Date Time Electronically viewed and signed by .Hernan Puga MD, on 06/19/2016 13:09 .S/
--- NOTE | 2016-06-19 13:27 | CONS ---
Date/Time of Note Date/Time of Note DATE: 06/19/16 TIME: 13:25 Assessment/Plan Assessment/Plan Additional Assessment/Plan Severe hyperkalemia, resolved Bradycardia, resolved Hypotension, improved SIRS Diabetes, uncontrolled History of congestive heart failure Preserved ejection fraction -Patient with stable heart rate. Blood pressure has been labile. Would continue to hold any antihypertensives at the current time as well as any nephrotoxic medications. Electrolytes have been supplemented already. Consultation Date/Type/Reason Admit Date/Time Jun 18, 2016 at 14:06 Initial Consult Date Type of Consultation: cv 24 HR Interval Summary Free Text/Dictation Patient feeling much better, denies shortness of breath, dizziness, fatigue Exam/Review of Systems Vital Signs Vitals Vital Signs Date Time Temp Pulse Resp B/P Pulse Ox O2 Delivery O2 Flow Rate FiO2 06/19/16 08:15 Nasal Cannula 2.0 06/19/16 08:00 68 06/19/16 06:00 16 115/79 95 06/19/16 04:20 21 06/19/16 04:00 98.7 Intake and Output 06/18/16 06/18/16 06/19/16 15:00 23:00 07:00 Intake Total 1705 ml 400 ml Output Total 1020 ml 755 ml Balance 685 ml -355 ml Exam No apparent distress Constitutional: alert, obese, oriented Head: normocephalic Neck: supple Respiratory: other (Coarse breath sounds bilaterally, no wheezing) Cardiovascular: other (S1-S2 heard), regular rate and rhythm Gastrointestinal: bowel sounds, non-tender, other (No guarding), soft Extremities: edema, other (No cyanosis) Results Result Diagram: 06/19/16 0445 06/19/16 0445 Results 24 hrs Laboratory Tests Test 06/18/16 14:25 06/18/16 17:35 06/18/16 18:27 06/18/16 20:10 Free Thyroxine 1.12 Lactic Acid Level 1.3 0.9 Potassium Level 5.8 H 5.2 H Bedside Glucose 433 *H 320 H Anion Gap 19 H Blood Urea Nitrogen 58 H Calcium Level 10.4 H Carbon Dioxide Level 23 Chloride Level 100 Creatinine 1.42 H Glucose Level 407 #*H Sodium Level 137 Test 06/18/16 20:11 06/18/16 22:05 06/19/16 00:40 06/19/16 04:44 Creatine Kinase 40 Creatine Kinase Index 3.8 Creatinine Kinase MB (Mass) 1.51 Troponin I 0.028 Lactic Acid Level 1.5 Bedside Glucose 126 118 Test 06/19/16 04:45 06/19/16 08:34 06/19/16 12:08 Anion Gap 15 Basophils # 0.0 Basophils % 0.4 Blood Urea Nitrogen 47 #H Calcium Level 9.8 Carbon Dioxide Level 26 Chloride Level 104 Cholesterol Level 170 Cholesterol/HDL Ratio 5.0 Creatinine 1.23 H Eosinophils # 0.1 Eosinophils % 0.5 Glucose Level 116 # HDL Cholesterol 34 Hematocrit 27.5 L Hemoglobin 9.2 L Hemoglobin A1c 10.1 H LDL Cholesterol, Calculated 89 Lactic Acid Level 0.6 Lymphocytes # 2.1 Lymphocytes % 18.4 Magnesium Level 1.2 L Mean Corpuscular Hemoglobin 29.5 Mean Corpuscular Hemoglobin Concent 33.5 Mean Corpuscular Volume 88.1 Mean Platelet Volume 11.1 H Monocytes # 0.9 Monocytes % 8.1 Neutrophils # 8.1 H Neutrophils % 72.2 Nucleated Red Blood Cells # 0.0 Nucleated Red Blood Cells % 0.0 Phosphorus Level 4.6 Platelet Count 259 # Potassium Level 5.0 Red Blood Count 3.12 L Red Cell Distribution Width 13.4 Sodium Level 140 Thyroid Stimulating Hormone (TSH) 1.370 Triglycerides Level 233 H White Blood Count 11.3 H Bedside Glucose 146 262 H Medications Medications Current Medications Dopamine HCl/ Dextrose 250 ml @ 5.25 mls/hr TITRATE IV Last administered on 14:49; Admin Dose 5.25 MLS/HR; Start 06/18/16 at 12:30 Ondansetron HCl (Zofran Inj) 4 mg Q6H PRN IV NAUSEA AND/OR VOMITING; Start at 14:00 Acetaminophen (Tylenol Tab) 650 mg Q6H PRN PO PAIN LEVEL 1-3 OR FEVER; Start at 14:00 Acetaminophen/ Hydrocodone Bitart ([place] (5/325)) 1 tab Q6H PRN PO MODERATE PAIN LEVEL 4-6; Start 06/18/16 at 14:00 Morphine Sulfate (morphine) 2 mg Q4H PRN IV SEVERE PAIN LEVEL 7-10 Last administered on 06/19/16 06:06; Admin Dose 2 MG; Start 06/18/16 at 14:00 Docusate Sodium (Colace) 100 mg Q12H PRN PO CONSTIPATION; Start 06/18/16 at 14: 00 Magnesium Hydroxide (Milk Of Mag) 30 ml DAILY PRN PO CONSTIPATION; Start at 14:00 Sodium Biphosphate/ Sodium Phosphate (Fleet Enema) 133 ml DAILY PRN [place] CONSTIPATION; Start 06/18/16 at 14:00 Famotidine (Pepcid Iv) 20 mg Q24H IV Last administered on 06/18/16 20:25; Admin Dose 20 MG; Start 06/18/16 at 21:00 Lorazepam 0.5 mg 0.5 mg Q6H PRN IV ANXIETY; Start 06/18/16 at 14:00 Sodium Chloride 1,000 ml @ 20 mls/hr Q24H IV Last administered on 06/19/16 08: 43; Admin Dose 20 MLS/HR; Start 06/18/16 at 13:56 Levofloxacin/ Dextrose (Levaquin 750 Mg/ D5W 150 ml (Pmx)) 150 ml @ 100 mls/hr Q48H IVPB Last administered on 06/18/16 16:00; Admin Dose 100 MLS/HR; Start at 16:00 Hydralazine HCl (Apresoline) 10 mg Q6H PRN IV ELEVATED BLOOD PRESSURE; Start at 14:00 Nitroglycerin (Nitroglycerin (Sl Tab) 0.4 Mg) 1 tab Q5M PRN SL ANGINA; Start at 14:00 Insulin Glargine (Lantus) 20 unit DAILY@08 SC Last administered on 06/19/16 08: 40; Admin Dose 20 UNIT; Start 06/19/16 at 08:00 Atorvastatin Calcium (Lipitor) 10 mg DAILY@21 PO Last administered on 20:25; Admin Dose 10 MG; Start 06/18/16 at 21:00 Glucose (Glutose) 15 gm Q15M PRN PO DECREASED GLUCOSE; Start 06/18/16 at 14:30 Glucose (Glutose) 22.5 gm Q15M PRN PO DECREASED GLUCOSE; Start 06/18/16 at 14: 30 Dextrose (D50w Syringe) 25 ml Q15M PRN IV DECREASED GLUCOSE; Start 06/18/16 at 14:30 Dextrose (D50w Syringe) 50 ml Q15M PRN IV DECREASED GLUCOSE; Start 06/18/16 at 14:30 Glucagon (Glucagen) 1 mg Q15M PRN IM DECREASED GLUCOSE; Start 06/18/16 at 14:30 Glucose (Glutose) 15 gm Q15M PRN BUCCAL DECREASED GLUCOSE; Start 06/18/16 at 14 :30 Miscellaneous Information 1 ea NOTE XX ; Start 06/18/16 at 14:30 Glucose (Glutose) 15 gm Q15M PRN PO DECREASED GLUCOSE; Start 06/18/16 at 14:30 Glucose (Glutose) 22.5 gm Q15M PRN PO DECREASED GLUCOSE; Start 06/18/16 at 14: 30 Dextrose (D50w Syringe) 25 ml Q15M PRN IV DECREASED GLUCOSE; Start 06/18/16 at 14:30 Dextrose (D50w Syringe) 50 ml Q15M PRN IV DECREASED GLUCOSE; Start 06/18/16 at 14:30 Glucagon (Glucagen) 1 mg Q15M PRN IM DECREASED GLUCOSE; Start 06/18/16 at 14:30 Glucose 15 gm 15 gm Q15M PRN BUCCAL DECREASED GLUCOSE; Start 06/18/16 at 14:30 Vancomycin HCl/ Sodium Chloride (Vancocin/NS) 250 ml @ 83.333 mls/ hr Q48H IVPB ; Start 06/20/16 at 15:00 IV Flush (NS 10 ml) 10 ml PRN PRN IV IV PROTOCOL; Start 06/18/16 at 18:30 Insulin Aspart (Novolog Insulin Pen) NOVOLOG *MODERATE* ALGORI... Q4 SC Last administered on 06/19/16t 12:11; Admin Dose 8 UNIT; Start 06/18/16 at 21:00 Richard Juárez DO Jun 19, 2016 13:27
--- NOTE | 2016-06-19 13:55 | PN ---
Date/Time of Note Date/Time of Note DATE: 06/19/16 TIME: 13:45 Assessment/Plan VTE Prophylaxis VTE Prophylaxis Intervention: SCD's Lines/Catheters IV Catheter Type (from Nrs): PICC Line Central line still needed: Yes Urinary Cath still in place: Yes Reason Cath still needed: urinary retention Assessment/Plan Chief Complaint/Hosp Course ASSESSMENT AND PLAN: An 81-year-old female coming in with dizziness and sweating with findings of hyperglycemia, hypotension, bradycardia, hyperkalemia , improving. 1. Hypotension - improved now. Again, unclear source. The patient is on multiple blood pressure medicines at home. She does have a history of congestive heart failure. Cannot rule out a septic versus cardiogenic shock cause vs med induced, but again, improved now. - will continue low rate IV fluid hydration as well - continue to hold home bp meds - f/u cardiology consult rec's. - We will followup on her culture results, TSH, A1c, and lipid panel as well. 2. Hyperkalemia - resolved now. Again, she did receive calcium gluconate, IV insulin, sodium bicarbonate and albuterol in ER yesterday. - monitor BMP to monitor potassium levels as well. - appreciate renal consult f/u their rec's. - Continue low rate IV fluids as well until eating. - Monitor urine output. 3. Bradycardia - resolved now. Her HR stabilized after getting multiple doses of atropine and also started on pressor support as well in the ER yesterday, off pressor now. She is alert. Again, unclear source. She was recently started on Aldactone at home. She is on Coreg as well. - monitor, f/u cardiology consult rec's. - continue to hold her cardiac medicines for now. 4. Hyperglycemia - sugars improved now. Again, she has per records, a history of type 2 diabetes. A1c = 10.1. It could just be uncontrolled diabetes. - SERA, linsey, consider adding basal Linagliptin 5mg PO daily as well. 5. History of congestive heart failure. 2D ECHO showed: Normal left ventricular systolic function. Normal left ventricular cavity size. Mild concentric left ventricular hypertrophy. Ejection fraction is visually estimated at 60 %. Tissue Doppler/Mitral Doppler indices are consistent with impaired relaxation (Stage I diastolic dysfunction). Normal right ventricular size. Normal right ventricular systolic function. - continue holding her blood pressure medicines given the above symptoms - f/u CV rec's - f/u PT, OT consults rec's as well. 6. History of coronary artery disease. Again, consider restarting her home aspirin. 7. High cholesterol - f/u lipid panel as well. 8. Gastrointestinal prophylaxis - H2 eugenio. 9. Deep venous thrombosis prophylaxis - Put her on sequential compression devices. Critical care time today = 45 min. Problems: Subjective 24 Hr Interval Summary Free Text/Dictation Pt more alert, seen by renal and CV teams. Bp and HR much improved now. Exam/Review of Systems Vital Signs Vitals Vital Signs Date Time Temp Pulse Resp B/P Pulse Ox O2 Delivery O2 Flow Rate FiO2 06/19/16 08:15 Nasal Cannula 2.0 06/19/16 08:00 68 06/19/16 06:00 16 115/79 95 06/19/16 04:20 21 06/19/16 04:00 98.7 Intake and Output 06/18/16 06/18/16 06/19/16 15:00 23:00 07:00 Intake Total 1705 ml 400 ml Output Total 1020 ml 755 ml Balance 685 ml -355 ml Exam GENERAL: The patient is alert, answering questions, no acute distress. HEENT: Pupils equal, round, react to light. Extraocular muscles intact. NECK: Supple, no thyromegaly. LUNGS: Clear to auscultation bilaterally. CARDIOVASCULAR: S1, S2 heard. No rubs or gallops. ABDOMEN: Soft, nontender, nondistended. Normal bowel sounds. No rebound or guarding. MUSCULOSKELETAL: Trace pitting edema bilateral lower extremities to the mid calves. NEUROLOGIC: No focal deficits. Results Result Diagram: 06/19/16 0445 06/19/16 0445 Results 24 hrs Laboratory Tests Test 06/18/16 14:25 06/18/16 17:35 06/18/16 18:27 06/18/16 20:10 Free Thyroxine 1.12 Lactic Acid Level 1.3 0.9 Potassium Level 5.8 H 5.2 H Bedside Glucose 433 *H 320 H Anion Gap 19 H Blood Urea Nitrogen 58 H Calcium Level 10.4 H Carbon Dioxide Level 23 Chloride Level 100 Creatinine 1.42 H Glucose Level 407 #*H Sodium Level 137 Test 06/18/16 20:11 06/18/16 22:05 06/19/16 00:40 06/19/16 04:44 Creatine Kinase 40 Creatine Kinase Index 3.8 Creatinine Kinase MB (Mass) 1.51 Troponin I 0.028 Lactic Acid Level 1.5 Bedside Glucose 126 118 Test 06/19/16 04:45 06/19/16 08:34 06/19/16 12:08 Anion Gap 15 Basophils # 0.0 Basophils % 0.4 Blood Urea Nitrogen 47 #H Calcium Level 9.8 Carbon Dioxide Level 26 Chloride Level 104 Cholesterol Level 170 Cholesterol/HDL Ratio 5.0 Creatinine 1.23 H Eosinophils # 0.1 Eosinophils % 0.5 Glucose Level 116 # HDL Cholesterol 34 Hematocrit 27.5 L Hemoglobin 9.2 L Hemoglobin A1c 10.1 H LDL Cholesterol, Calculated 89 Lactic Acid Level 0.6 Lymphocytes # 2.1 Lymphocytes % 18.4 Magnesium Level 1.2 L Mean Corpuscular Hemoglobin 29.5 Mean Corpuscular Hemoglobin Concent 33.5 Mean Corpuscular Volume 88.1 Mean Platelet Volume 11.1 H Monocytes # 0.9 Monocytes % 8.1 Neutrophils # 8.1 H Neutrophils % 72.2 Nucleated Red Blood Cells # 0.0 Nucleated Red Blood Cells % 0.0 Phosphorus Level 4.6 Platelet Count 259 # Potassium Level 5.0 Red Blood Count 3.12 L Red Cell Distribution Width 13.4 Sodium Level 140 Thyroid Stimulating Hormone (TSH) 1.370 Triglycerides Level 233 H White Blood Count 11.3 H Bedside Glucose 146 262 H Medications Medications Current Medications Dopamine HCl/ Dextrose 250 ml @ 5.25 mls/hr TITRATE IV Last administered on 14:49; Admin Dose 5.25 MLS/HR; Start 06/18/16 at 12:30 Ondansetron HCl (Zofran Inj) 4 mg Q6H PRN IV NAUSEA AND/OR VOMITING; Start at 14:00 Acetaminophen (Tylenol Tab) 650 mg Q6H PRN PO PAIN LEVEL 1-3 OR FEVER; Start at 14:00 Acetaminophen/ Hydrocodone Bitart ([place] (5/325)) 1 tab Q6H PRN PO MODERATE PAIN LEVEL 4-6; Start 06/18/16 at 14:00 Morphine Sulfate (morphine) 2 mg Q4H PRN IV SEVERE PAIN LEVEL 7-10 Last administered on 06/19/16 06:06; Admin Dose 2 MG; Start 06/18/16 at 14:00 Docusate Sodium (Colace) 100 mg Q12H PRN PO CONSTIPATION; Start 06/18/16 at 14: 00 Magnesium Hydroxide (Milk Of Mag) 30 ml DAILY PRN PO CONSTIPATION; Start at 14:00 Sodium Biphosphate/ Sodium Phosphate (Fleet Enema) 133 ml DAILY PRN [place] CONSTIPATION; Start 06/18/16 at 14:00 Famotidine (Pepcid Iv) 20 mg Q24H IV Last administered on 06/18/16 20:25; Admin Dose 20 MG; Start 06/18/16 at 21:00 Lorazepam 0.5 mg 0.5 mg Q6H PRN IV ANXIETY; Start 06/18/16 at 14:00 Sodium Chloride 1,000 ml @ 20 mls/hr Q24H IV Last administered on 06/19/16 08: 43; Admin Dose 20 MLS/HR; Start 06/18/16 at 13:56 Levofloxacin/ Dextrose (Levaquin 750 Mg/ D5W 150 ml (Pmx)) 150 ml @ 100 mls/hr Q48H IVPB Last administered on 06/18/16 16:00; Admin Dose 100 MLS/HR; Start at 16:00 Hydralazine HCl (Apresoline) 10 mg Q6H PRN IV ELEVATED BLOOD PRESSURE; Start at 14:00 Nitroglycerin (Nitroglycerin (Sl Tab) 0.4 Mg) 1 tab Q5M PRN SL ANGINA; Start at 14:00 Insulin Glargine (Lantus) 20 unit DAILY@08 SC Last administered on 06/19/16 08: 40; Admin Dose 20 UNIT; Start 06/19/16 at 08:00 Atorvastatin Calcium (Lipitor) 10 mg DAILY@21 PO Last administered on 20:25; Admin Dose 10 MG; Start 06/18/16 at 21:00 Glucose (Glutose) 15 gm Q15M PRN PO DECREASED GLUCOSE; Start 06/18/16 at 14:30 Glucose (Glutose) 22.5 gm Q15M PRN PO DECREASED GLUCOSE; Start 06/18/16 at 14: 30 Dextrose (D50w Syringe) 25 ml Q15M PRN IV DECREASED GLUCOSE; Start 06/18/16 at 14:30 Dextrose (D50w Syringe) 50 ml Q15M PRN IV DECREASED GLUCOSE; Start 06/18/16 at 14:30 Glucagon (Glucagen) 1 mg Q15M PRN IM DECREASED GLUCOSE; Start 06/18/16 at 14:30 Glucose (Glutose) 15 gm Q15M PRN BUCCAL DECREASED GLUCOSE; Start 06/18/16 at 14 :30 Miscellaneous Information 1 ea NOTE XX ; Start 06/18/16 at 14:30 Glucose (Glutose) 15 gm Q15M PRN PO DECREASED GLUCOSE; Start 06/18/16 at 14:30 Glucose (Glutose) 22.5 gm Q15M PRN PO DECREASED GLUCOSE; Start 06/18/16 at 14: 30 Dextrose (D50w Syringe) 25 ml Q15M PRN IV DECREASED GLUCOSE; Start 06/18/16 at 14:30 Dextrose (D50w Syringe) 50 ml Q15M PRN IV DECREASED GLUCOSE; Start 06/18/16 at 14:30 Glucagon (Glucagen) 1 mg Q15M PRN IM DECREASED GLUCOSE; Start 06/18/16 at 14:30 Glucose 15 gm 15 gm Q15M PRN BUCCAL DECREASED GLUCOSE; Start 06/18/16 at 14:30 Vancomycin HCl/ Sodium Chloride (Vancocin/NS) 250 ml @ 83.333 mls/ hr Q48H IVPB ; Start 06/20/16 at 15:00 IV Flush (NS 10 ml) 10 ml PRN PRN IV IV PROTOCOL; Start 06/18/16 at 18:30 Insulin Aspart (Novolog Insulin Pen) NOVOLOG *MODERATE* ALGORI... Q4 SC Last administered on 06/19/16t 12:11; Admin Dose 8 UNIT; Start 06/18/16 at 21:00 OG COTTRELL Jun 19, 2016 13:55
[2016-06-19] MEDS: FAMOTIDINE 20 MG INJ IV SCH (20:50)
[2016-06-19] MEDS: ATORVASTATIN 10 MG TAB PO SCH (20:51)
[2016-06-19] MEDS ORDERED: VANCOMYCIN 750 MG in SOD CHLORIDE 0.9% 150 ML IVPB SCH (21:00)
[2016-06-20] VITALS (9 sets, daily range): BP systolic 156–208; BP diastolic 60–84; PULSE 60–88; RESP 16–21
[2016-06-20] MEDS: INSULIN ASPART [NOVOLOG] 3 ML PEN SC SCH ×4 (00:43→12:26)
[2016-06-20 06:50] LABS: ADD SCAN DIFF NO
[2016-06-20 06:59] LABS: MAGNESIUM 1.8 mg/dl (1.7-2.5); PHOSPHORUS 3.7 mg/dl (2.5-4.9)
[2016-06-20 07:01] LABS: BASOPHILS % 0.2 % (0.0-2.0); EOSINOPHILS # 0.2 10^3/ul (0.0-0.5); EOSINOPHILS % 1.9 % (0.0-7.0); LYMPHOCYTES # 2.4 10^3/ul (0.8-2.9); LYMPHOCYTES % 19.9 % (15.0-51.0); MEAN CORPUSCULAR HEMOGLOBIN 30.1 pg (29.0-33.0); MEAN CORPUSCULAR HGB CONC 33.3 g/dl (32.0-37.0); MEAN CORPUSCULAR VOLUME 90.4 fl (82.0-101.0); MONOCYTE # 0.9 10^3/ul (0.3-0.9); MONOCYTES % 7.3 % (0.0-11.0); NEUTROPHIL # 8.5 10^3/ul (1.6-7.5); NEUTROPHILS % 70.3 % (39.0-77.0); PLATELET COUNT 269 10^3/UL (140-415); RED BLOOD COUNT 3.32 10^6/ul (4.20-5.40); RED CELL DISTRIBUTION WIDTH 13.4 % (11.5-14.5); WHITE BLOOD COUNT 12.1 10^3/ul (4.8-10.8)
[2016-06-20 07:10] LABS: POTASSIUM 4.7 mmol/L (3.5-5.1)
[2016-06-20 07:13] LABS: CREATININE 0.91 mg/dl (0.44-1.00)
[2016-06-20 07:14] LABS: CALCIUM 9.6 mg/dl (8.4-10.2)
[2016-06-20] MEDS: INSULIN GLARGINE [LANtus] 3 ML PEN SC SCH (08:31)
[2016-06-20] MEDS ORDERED: AMLODIPINE 10 MG TAB PO SCH (09:00)
--- NOTE | 2016-06-20 09:17 | PN ---
DATE: 06/20/2016 SUBJECTIVE: The patient is stable, no acute events overnight. No fevers, chills, nausea, vomiting. No shortness of breath. OBJECTIVE: VITAL SIGNS: Blood pressure is 164/71, respirations 16, pulse is 70, temperature 98.2. HEENT: Head is normocephalic. NECK: Supple. HEART: Regular rate. LUNGS: Show diminished breath sounds at the base. ABDOMEN: Soft, nontender to palpation, no rebound or guarding. EXTREMITIES: Negative for clubbing, cyanosis, no edema. DERMATOLOGIC: No rashes. MUSCULOSKELETAL: No joint effusions. NEUROLOGIC: No change in exam. MEDICATIONS: The patient's medications have been reviewed. LABORATORY DATA: Shows sodium 143, potassium 4.7, chloride 105, BUN 28, creatinine 0.91. White cou nt 11.1, hemoglobin 10.0, hematocrit 38.0, platelet count is 269. ASSESSMENT AND PLAN: 1. Severe hyperkalemia, etiology secondary to Aldactone affect and hyperglycemia. The patient's po tassium levels have normalized. We will continue to monitor. 2. Nonoliguric acute kidney injury on top of chronic kidney disease. Etiology is secondary to hemo dynamics. Renal function is improved with IV fluids. At this point, continue current treatment jhon n, supportive care, renally dose all meds. 3. Hyponatremia, resolved. 4. Mineral bone disorder. Continue to monitor calcium and phosphorus levels. 5. Systemic inflammatory response syndrome. The patient is on antibiotics. Will continue to monit or. 6. History of congestive heart failure. The patient appears euvolemic. Continue to monitor. IV f luids have been discontinued. 7. Diabetes, continue Accu-Cheks and insulin sliding scale. 8. Hypertension. Blood pressures are currently elevated. Will resume the patient on antihypertens simeon medications, Norvasc 10 mg daily, and monitor. 9. Encephalopathy, improving. Dictated By: CHA HE/REFUGIO Conf#: [id number] DID#: [id number]
--- NOTE | 2016-06-20 12:29 | PDOCDIS ---
Discharge Instructions CONDITION Patient Condition: Stable HOME CARE INSTRUCTIONS: Diet Instructions: Low Fat /Cholesterol ACTIVITY: Activity Restrictions: Slowly Increase Activity FOLLOW UP/APPOINTMENTS Appointments Please do not take any more medications: 1.Benicar 2. Aldactone 3. Vesicare. Please see your doctor in the clinic in 1 week. OG COTTRELL Jun 20, 2016 12:29
[2016-06-20] MEDS ORDERED: traMADol 50 MG TAB PO PRN (12:30)
[2016-06-20] MEDS ORDERED: TRAM50TA2 PO (12:30)
[2016-06-20] MEDS ORDERED: FUROSEMIDE 40 MG TAB PO SCH (12:30)
[2016-06-20] MEDS ORDERED: ASPIRIN (EC) 81 MG TAB PO SCH (12:30)
--- NOTE | 2016-06-20 13:40 | DS ---
DATE OF ADMISSION: 06/18/2016 DATE OF DISCHARGE: 06/20/2016 HOSPITAL COURSE: An 81-year-old female originally admitted on 06/18/2016 being discharged home on 06/20/2016. The patient came in with severe symptoms of high potassium, as well as she was found with severe bradycardia and hypotension. She was initially admitted to ICU and was seen by cardiology team and renal team. Her potassium was severely elevated at 7.6. She was given calcium gluconate, albuterol nebulizer, Kayexalate, IV insulin and sodium bicarbonate, which helped bring her potassium levels down. She was given IV fluids as well. Initially she required atropine about 6 doses in the ER to help treat her bradycardia, and regarding her hypotension she did require some pressor support as well. She had some elevated lactic acid as well. This improved after getting aggressive IV fluid hydration. Her sugars were also elevated on admission, and her A1c was found to be 10.1 and she was started on insulin regimen. Over the course of her hospital stay, again her heart rate improved. Her blood pressure resolved to normal range, and her potassium levels improved to nL range as well. It was thought that, since the patient had recently been started on Aldactone at home, this could have been interacting with her Benicar medicines as well as her VESIcare medicines she takes at home, leading to the hyperkalemia and possible bradycardia/ hypotension. So those medicines were obviously held along with her other antihypertensives on admission. Slowly, we reintroduced her Coreg and her Lasix on the day of discharge. She is able to ambulate and tolerate a p.o. diet. She was seen by physical therapy team, and she does require a front- wheel walker and possible home health PT as well, so we will set that up before she goes In the meantime, her vital signs are stable. Her potassium levels are normal now. She had a slight leukocytosis, but no fevers. Cultures are negative. She will be discharged today in stable condition. DISCHARGE MEDICATIONS: She will be sent home on the following medications: 1. Fosamax 70 mg q. weekly. 2. Aspirin 81 mg daily. 3. Coreg 25 mg b.i.d. 4. Vitamin D3 50,000 units weekly. 5. Celexa 20 mg daily. 6. Clonidine 0.1 mg p.o. q.6h. p.r.n. 7. Clonidine patch 0.3 mg q. weekly. 8. Colace 100 mg b.i.d. 9. Lasix 40 mg daily. 10. Glimepiride 4 mg daily. 11. Lantus 20 units subcutaneous daily. 12. Humalog insulin 0 to 18 units subcutaneous q.i.d. 13. Metformin 500 mg b.i.d. 14. Nitroglycerin 0.4 mg sublingual every 5 minutes p.r.n. 15. Protonix 40 mg daily. 16. Simvastatin 20 mg daily. 17. Tramadol 50 mg q.6h. p.r.n. Again, we are stopping her Benicar medicine, we are stopping her VESIcare medicine and we are stopping Aldactone medicine. She has been instructed not to take those due to side effects with hyperkalemia and possible bradycardia/ hypotension. FOLLOWUP: She will need to follow up with primary care doctor in clinic in the next 1 to 2 weeks. FINAL DIAGNOSES: 1. Hypotension and bradycardia, most likely secondary to medicine drug interaction as outpatient, now improved after atropine and intravenous fluids. 2. Hyperkalemia, again secondary to drug interaction with home medicines, possibly Benicar, VESIcare and Aldactone, now held and potassium levels are normal. 3. Renal insufficiency resolved after aggressive hydration. 4. Hyperglycemia, resolved after insulin regimen. A1c of 10.1, most likely secondary to type 2 diabetes 5. History of congestive heart failure. Of note, she had an echocardiogram performed, ejection fraction of 60%. There was some stage I diastolic dysfunction, but normal left ventricular systolic function, normal left ventricular cavity size. There was some mild concentric left ventricular hypertrophy. 6. History of coronary artery disease 7. High cholesterol. 8. Essential hypertension. 9. Depression. 10. Congestive heart failure. Time spent on discharging the patient 50 minutes. Dictated By: OG WOOD Conf#: [id number] DID#: [id number] [id number]
[2016-06-20] MEDS ORDERED: VANCOMYCIN 1.5 GM in SOD CHLORIDE 0.9% 250 ML IVPB SCH (15:00)
[2016-06-20] MEDS ORDERED: SOD CHLORIDE 0.9% 100 ML ONE (17:57)
[2016-06-21] MEDS ORDERED: INFLUENZA VIRUS VACCINE 0.5 ML (DISPENSING) IM* ONE (09:00)
--- NOTE | 2016-06-21 13:39 | RADRPT ---
Vent Rate: 86 bpm RR Interval: 0 msec SD Interval: 134 msec QRS Duration: 78 msec QT Interval: 352 msec QTC Interval: 421 msec P-R-T Delong: 65 - 59 - 79 degrees Normal sinus rhythm Nonspecific T wave abnormality Abnormal ECG Electronically Signed By: Antonio Hill [id number]
== END 2016-06-20 16:14 | disposition home health service (06) | DRG 308 ==
LOC: E/R 11:07 → ICU 14:06 → MS4 06-20 02:21
PROVIDERS: ADMIT Hospitalist; ATTEND Hospitalist
PROC: 02HV33Z Insertion of Infusion Device into Superior Vena Cava, Percutaneous Approach (ICD-10-PCS; principal; 2016-06-18)
PROC: B548ZZA Ultrasonography of Superior Vena Cava, Guidance (ICD-10-PCS; 2016-06-18)
PROC: 4A033R1 Measurement of Arterial Saturation, Peripheral, Percutaneous Approach (ICD-10-PCS; 2016-06-18)
DX: R00.1 Bradycardia, unspecified (principal); G92 Toxic encephalopathy; N17.9 Acute kidney failure, unspecified; E87.4 Mixed disorder of acid-base balance; I13.0 Hypertensive heart and chronic kidney disease with heart failure and stage 1 through stage 4 chronic kidney disease, or unspecified chronic kidney disease; R65.10 Systemic inflammatory response syndrome (SIRS) of non-infectious origin without acute organ dysfunction; I50.30 Unspecified diastolic (congestive) heart failure; E87.1 Hypo-osmolality and hyponatremia; E87.5 Hyperkalemia; I95.2 Hypotension due to drugs; I25.10 Atherosclerotic heart disease of native coronary artery without angina pectoris; E03.9 Hypothyroidism, unspecified; E11.65 Type 2 diabetes mellitus with hyperglycemia; D64.9 Anemia, unspecified; E78.00 Pure hypercholesterolemia, unspecified; F32.9 Major depressive disorder, single episode, unspecified; E11.22 Type 2 diabetes mellitus with diabetic chronic kidney disease; N18.9 Chronic kidney disease, unspecified; Z79.84 Long term (current) use of oral hypoglycemic drugs; Z79.82 Long term (current) use of aspirin; Z79.4 Long term (current) use of insulin; T50.0X5A Adverse effect of mineralocorticoids and their antagonists, initial encounter; Y92.129 Unspecified place in nursing home as the place of occurrence of the external cause; T46.5X5A Adverse effect of other antihypertensive drugs, initial encounter; T44.3X5A Adverse effect of other parasympatholytics [anticholinergics and antimuscarinics] and spasmolytics, initial encounter
CPT/HCPCS: 36415; 36569; 36600; 71010; 76775; 76937; 80048; 80053; 80061; 82550; 82553; 82803; 82962; 83036; 83605; 83735; 84100; 84132; 84439; 84443; 84484; 85025; 85610; 85730; 87040; 87081; 92610; 93005; 93306; 94664; 96365; 96375; 97162; J0360; J0461; J1265; J1815; J1956; J2270; J2405; J2543; J3370; J7030